=== PATIENT | male | born 1995 | race Caucasian/White ===

== ENCOUNTER 2019-12-22 09:06 | Emergency (ER) | payer OTHER ==
[~2019-12-22] VITALS: Ht 170.2 cm; Wt 86.6 kg
[2019-12-22 09:17] VITALS: Ht 170.2 cm; Wt 86.6 kg
[2019-12-22 10:54] VITALS: BP 125/71
== END 2019-12-22 10:54 | disposition home or self-care (01) ==
LOC: ED 09:06
DX: K04.7 Periapical abscess without sinus (principal)
CPT/HCPCS: J0558